=== PATIENT | female | born 1955 | race Caucasian/White ===

== ENCOUNTER → 2016-09-11 | Outpatient (CLI) | payer BC ==
--- NOTE | 2016-09-11 12:27 | PCVCIMAG ---
APPROVED REPORT Study performed: 09/11/2016 10:09:10 EXAM: Comprehensive 2D, Doppler, and color-flow Echocardiogram Patient Location: Echo lab Status: routine Other Information Study Quality: Fair Indications Pre-Op 2D Dimensions LVEF(%): 65.88 (>50%) IVSd: 10.41 (7-11mm)LVOT Diam: 21.62 (18-24mm) LVDd: 42.86 mm PWd: 10.26 (7-11mm)Ascending Ao: 30.08 (22-36mm) LVDs: 27.45 (25-40mm) Left Atrium: 34.68 (27-40mm) Aortic Root: 31.50 mm LV Single Plane 4CH: 69.95 % LV Single Plane 2CH: 69.09 %Madison's LVEF: 69.52 % Volumes Left Atrial Volume (Systole) Single Plane 4CH: 55.52 mLSingle Plane 2CH: 58.30 mL LA ESV Index: 29.00 mL/m2 Aortic Valve AoV Peak Abdoul.: 1.13 m/s AO Peak Gr.: 5.12 mmHgLVOT Max P.61 mmHg LVOT Max V: 0.95 m/s CLARISSA Vmax: 3.08 cm2 Mitral Valve E/A Ratio: 1.0 MV Decel. Time: 191.29 ms MV E Max Abdoul.: 0.66 m/s MV A Abdoul.: 0.63 m/s IVRT: 124.57 ms TDI E/Lateral E': 9.43E/Medial E': 16.50 Medial E' Abdoul.: 0.04 m/s Lateral E' Abdoul.: 0.07 m/s Pulmonary Valve PV Peak Abdoul.: 0.80 m/sPV Peak Gr.: 2.56 mmHg Pulmonary Vein P Vein S: 0.63 m/sP Vein A: 0.46 m/s P Vein D: 0.58 m/sP Vein A Dur.: 79.6 msec P Vein S/D Ratio: 1.09 Tricuspid Valve TV Vmax: 0.57 m/s Left Ventricle The left ventricle is normal size. There is normal LV segmental wall motion. There is normal left ventricular wall thickness. Left ventricular systolic function is normal. The left ventricular ejection fraction is within the normal range. LVEF is 60-65%. The left ventricular diastolic function is normal. Right Ventricle The right ventricle is normal size. The right ventricular systolic function is normal. Atria The left atrium size is normal. The right atrium size is normal. Aortic Valve The aortic valve is normal in structure. No aortic regurgitation is present. There is no aortic valvular stenosis. Mitral Valve The mitral valve is normal in structure. There is no mitral valve regurgitation noted. No evidence of mitral valve stenosis. Tricuspid Valve The tricuspid valve is normal in structure. There is trivial tricuspid valve regurgitation noted. Pulmonic Valve The pulmonary valve is normal in structure. There is no pulmonic valvular regurgitation. Great Vessels The aortic root is normal in size. The ascending aorta is normal in size. IVC is normal in size and collapses with >50% inspiration The pulmonary artery is normal. Pericardium There is no pericardial effusion. There is no pleural effusion. <Conclusion> Left ventricular systolic function is normal. LVEF is 60-65%. Normal heart size There is normal LV segmental wall motion. The left ventricular diastolic function is normal. Structural valve disease was absent. No regurgitant or stenotic lesions. Pulmonary artery pressure could not be reliably ascertained. There is no pericardial effusion.
== END | disposition home or self-care (01) ==
LOC: PCVCIMAG 09:55
PROVIDERS: ATTEND Internal Medicine
DX: Z01.818 Encounter for other preprocedural examination (principal); E78.5 Hyperlipidemia, unspecified; I07.1 Rheumatic tricuspid insufficiency
CPT/HCPCS: 80061; 93005; 93306